=== PATIENT | male | born 1995 | race Caucasian/White ===

== ENCOUNTER 2018-01-27 23:14 | Emergency (ER) | payer BC ==
[2018-01-27 23:28] VITALS: BP 143/56; PULSE 132; TEMP 97.2; BMI 27.3
[2018-01-27] MEDS ORDERED: morphine CARPU-JECT 2 MG/1 ML DISP.SYRIN IVPUSH ONE (23:43)
[2018-01-27] MEDS ORDERED: CEFAZOLIN 1 GM in DEXTROSE 5%-WATER - 50 ML IVPB ONE (23:43)
[2018-01-27] MEDS ORDERED: DIPHTH,PERTUSS(ACELL),TET VAC 0.5 ML VIAL IM ONE (23:43)
--- NOTE | 2018-01-27 23:43 | PDOC ---
Attending Attestation - HPI HPI: 01/28/18 02:59 The patient is a 22 year old male with no significant PMH who presents to the emergency department with right hand and arm laceration. The patient reports that he was out earlier today with his family when he was having a disagreement with his parents when he punched his hand through some glass. The patient denies any other symptoms. He denies any numbness, weakness or tingling sensation. He denies any fever, chills, nausea, vomit, diarrhea, constipation or urinary symptoms. He denies any chest pain, shortness of breath, headache and dizziness. The patient denies any other complaints. It is noted that the patient works in construction as a international logistics manager. PCP: Dr. Milton - Physicial Exam PE: 01/28/18 02:59 GENERAL: Awake, alert, and fully oriented, in no acute distress HEAD: No signs of trauma EYES: PERRLA, EOMI, sclera anicteric, conjunctiva clear ENT: Auricles normal inspection, hearing grossly normal, nares patent, oropharynx clear without exudates. Moist mucosa NECK: Normal ROM, supple, no lymphadenopathy, JVD, or masses LUNGS: Breath sounds equal, clear to auscultation bilaterally. No wheezes, and no crackles HEART: Regular rate and rhythm, normal S1 and S2, no murmurs, rubs or gallops ABDOMEN: Soft, nontender, normoactive bowel sounds. No guarding, no rebound. No masses EXTREMITIES: (+)Volar aspect of right arm has active bleeding in the 2nd and 3rd finger. Shallow laceration in 5th finger 3 - 4 cm lac on forearm , medial aspect and small lac to right forearm. FDP FDS both intact in all fingers. Strength in tact. Sensory motor intact. Normal range of motion, no edema. No clubbing or cyanosis. No cords, erythema, or tenderness NEUROLOGICAL: Cranial nerves II through XII grossly intact. Normal speech, normal gait SKIN: Warm, Dry, normal turgor, no rashes or lesions noted. Documentation prepared by Radha Fajardo, acting as medical professionals for Kassy Nunez MD. <Radha Fajardo - Last Filed: 01/28/18 02:59> - Resident Resident Name: Jayme Otero - ED Attending Attestation I have performed the following: I have examined & evaluated the patient, The case was reviewed & discussed with the resident, I agree w/resident's findings & plan - Medical Decision Making 01/28/18 00:07 Pt will have sutures placed in his 2nd and 3rd fingers volar aspect. Pt will have his forearm stiched up. XRAYS to look for bony involvement in the hand and glass in the forearm. Pt will have Tdap vaccine, IV ancef, morphine for pain. <Kassy Nunez - Last Filed: 01/28/18 05:20> Procedures - Laceration/Wound Repair Right Finger 2nd digit Wound Length: to 2.5 cm Wound Explored: clean Wound's Depth, Shape: into muscle Irrigated w/ Saline: Yes Anesthesia: 1% Lidocaine Amount of Anesthetic (ccs): 3 Wound Repaired With: Sutures Suture Size/Type: 4:0, proline Number of Sutures: 9 Layer Closure: No Sterile Dressing Applied: Yes Splint Applied: Yes Finger 3rd digit Wound Length: to 2.5 cm Wound's Depth, Shape: linear, irregular Irrigated w/ Saline: Yes Betadine Prep: Yes Anesthesia: 1% Lidocaine Amount of Anesthetic (ccs): 2 Wound Repaired With: Sutures Suture Size/Type: 4:0, proline Layer Closure: No Sterile Dressing Applied: Yes Splint Applied: Yes Right Arm Wound Length: 5.0 to 7.5 cm Wound's Depth, Shape: irregular, flap Irrigated w/ Saline: Yes Betadine Prep: Yes Anesthesia: 1% Lidocaine Amount of Anesthetic (ccs): 5 Wound Repaired With: Sutures Suture Size/Type: 4:0, nylon Number of Sutures: 7 <Kassy Nunez - Ghulam Filed: 01/28/18 05:20>
[2018-01-27] MEDS ORDERED: ceFAZolin SODIUM 1 GM VIAL ONE (23:44)
[2018-01-27] MEDS ORDERED: MORPHINE SULFATE 2 MG/ML VIAL ONE (23:49)
[2018-01-28] MEDS ORDERED: ceFAZolin SODIUM 1 GM VIAL ONE (00:03)
--- NOTE | 2018-01-28 00:44 | PDOC ---
History of Present Illness - General Chief Complaint: Laceration Stated Complaint: LACERATION HAND AND WRIST Time Seen by Provider: 01/27/18 23:42 - History of Present Illness Initial Comments: The patient is a 22M with no reported history who presents with multiple RUE lacerations s/p hitting a glass door. In addition he had active bleeding from his index and middle fingers. He states that he was angry after an argument with his parents and hit the glass door out of frustration. He then was walking down the street when he noticed blood dripping from his hand. He then decided to present to the ED. He endorses EtOH use tonight as well but denies frequent EtOH use. He does not remember his last tetanus shot. He denies numbness/tingling in his fingers and denies loss of motor function. 01/28/18 00:49 Past History - Past Medical History Allergies/Adverse Reactions: Allergies Allergy/AdvReac Type Severity Reaction Status Date / Time No Known Allergies Allergy Verified 01/27/18 23:25 - Suicide/Smoking/Psychosocial Hx Smoking History: Never smoked Information on smoking cessation initiated: No Hx Alcohol Use: No Drug/Substance Use Hx: No Review of Systems - Review of Systems Able to Perform ROS?: Yes Comments:: GENERAL/CONSTITUTIONAL: No fever or chills. No weakness HEAD, EYES, EARS, NOSE AND THROAT: No change in vision. No ear pain or discharge. No sore throat CARDIOVASCULAR: No chest pain or shortness of breath RESPIRATORY: No cough, wheezing, or hemoptysis GASTROINTESTINAL: No nausea, vomiting, diarrhea or constipation GENITOURINARY: No dysuria, frequency, or change in urination MUSCULOSKELETAL: per HPI NEUROLOGIC: No headache, vertigo, loss of consciousness, or change in strength/ sensation HEMATOLOGIC/LYMPHATIC: No anemia, easy bleeding, or history of blood clots ALLERGIC/IMMUNOLOGIC: No hives or skin allergy Is the patient limited Syriac proficient: No *Physical Exam - Vital Signs Last Vital Signs Temp Pulse Resp BP Pulse Ox 97.2 F L 132 H 20 143/56 98 01/27/18 23:25 01/27/18 23:25 01/27/18 23:25 01/27/18 23:25 01/27/18 23:25 - Physical Exam Comments: GENERAL: Awake, alert, and fully oriented, in no acute distress HEAD: No signs of trauma, normocephalic, atraumatic EYES: PERRL, EOMI, sclera anicteric, conjunctiva clear ENT: Hearing grossly normal, nares patent, oropharynx clear without exudates. Moist mucosa NECK: Normal ROM, supple LUNGS: No distress, speaks full sentences, clear to auscultation bilaterally HEART: tachycardic and regular rhythm, no murmur appreciated, peripheral pulses normal and equal bilaterally ABDOMEN: Soft, nontender, normoactive bowel sounds. No guarding, no rebound. No masses EXTREMITIES : approx 4cm laceration to anterior forearm without fascial compromise; approx 3cm x 2cm avulsion to distal anterior forearm w/o fascial compromise; lacerations to index, middle and little fingers; patient with movement intact across all interphalangial joints; sensation intact to light touch throughout as well NEUROLOGICAL: Cranial nerves II through XII grossly intact. Normal speech, normal gait, no focal sensorimotor deficits SKIN: lacerations as per above otherwise warm and dry without rash 01/28/18 00:52 Procedures - Laceration/Wound Repair Right Volar 2nd digit Wound Length: to 2.5 cm Wound Explored: clean Wound's Depth, Shape: into muscle Irrigated w/ Saline: Yes Anesthesia: 1% Lidocaine Amount of Anesthetic (ccs): 4 Wound Debrided: minimal Wound Repaired With: Sutures (9) Suture Size/Type: 4:0 Number of Sutures: 9 Layer Closure: No Right Volar 3rd digit Wound Length: to 2.5 cm Wound Explored: clean Wound's Depth, Shape: superficial Irrigated w/ Saline: Yes Anesthesia: 1% Lidocaine Amount of Anesthetic (ccs): 4 Wound Debrided: minimal Wound Repaired With: Sutures Suture Size/Type: 4:0 Number of Sutures: 3 Layer Closure: No Sterile Dressing Applied: Yes Right Volar 5th digit Wound Length: to 2.5 cm Wound Explored: clean Wound's Depth, Shape: superficial Irrigated w/ Saline: Yes Anesthesia: 1% Lidocaine Amount of Anesthetic (ccs): 2 Wound Repaired With: Sutures Suture Size/Type: 4:0 Number of Sutures: 2 Layer Closure: No Sterile Dressing Applied: Yes Left Anterior Arm Wound Length: 2.6 to 5.0 cm Wound Explored: clean Wound's Depth, Shape: superficial Irrigated w/ Saline: Yes Anesthesia: 1% Lidocaine Amount of Anesthetic (ccs): 6 Wound Debrided: minimal Wound Repaired With: Sutures Suture Size/Type: 4:0, nylon Number of Sutures: 7 Layer Closure: No Sterile Dressing Applied: Yes ED Treatment Course - Medications Given in the ED: ED Medications Discontinued Medications Generic Name Dose Route Start Last Admin Trade Name Angelia PRN Reason Stop Dose Admin Diphtheria/Tetanus/Acell Pertussis 0.5 ml 01/27/18 23:43 01/28/18 00:10 Adacel Adolescent/Adult - IM 01/27/18 23:44 0.5 ml .ONCE ONE Administration Cefazolin Sodium 1 gm/ 50 mls @ 100 mls/hr 01/27/18 23:43 01/27/18 23:49 Dextrose IVPB 01/28/18 00:12 100 mls/hr ONCE ONE Administration Morphine Sulfate 2 mg 01/27/18 23:43 01/27/18 23:53 Morphine Injection - IVPUSH 01/27/18 23:44 2 mg ONCE ONE Administration Medical Decision Making - Medical Decision Making The patient is a 22M who hit a glass door [employer] who presents with multiple hand lacerations and a forearm laceration ED Course Lacerations closed. See procedure notes for details XR hand and forearm for foreign body evaluation 01/28/18 00:47 Heart rate improved s/p pain medication XR pending Patient given wound care instructions and follow up The patient understands and agrees with the plan of care as outlined above and that questions have been answered to their apparent satisfaction. The patient was instructed to follow up with their primary care physician, was given return precautions, and voiced understanding. Dispo: Home with PCP and Ortho f/u. Will need suture removal in 7-10 days 01/28/18 01:33 *DC/Admit/Observation/Transfer Diagnosis at time of Disposition: Laceration - Discharge Dispostion Disposition: HOME Condition at time of disposition: Improved Decision to Admit order: No - Referrals Referrals: Michael Milton MD [Primary Care Provider] - Michael Murry MD [Staff Physician] - - Patient Instructions Printed Discharge Instructions: How to Care for a Laceration After Repair, DI for Laceration Repair - Post Discharge Activity
== END 2018-01-28 02:51 | disposition home or self-care (01) ==
LOC: JER 23:14
PROC: 0HQDXZZ Repair Right Lower Arm Skin, External Approach (ICD-10-PCS; principal; 2018-01-27)
DX: S61.216A Laceration without foreign body of right little finger without damage to nail, initial encounter (principal); S61.212A Laceration without foreign body of right middle finger without damage to nail, initial encounter; S61.210A Laceration without foreign body of right index finger without damage to nail, initial encounter; S61.411A Laceration without foreign body of right hand, initial encounter; W25.XXXA Contact with sharp glass, initial encounter; Y93.89 Activity, other specified; Y92.89 Other specified places as the place of occurrence of the external cause
CPT/HCPCS: 73090-TC-RT-FY; 73130-TC-RT-FY; 99281-25